=== PATIENT | male | born 1990 | race Hispanic/Latino ===

== ENCOUNTER 2017-12-02 06:17 | Observation (INO) | payer SELFPAY ==
[2017-12-02] MEDS ORDERED: NA CHLORIDE 0.9% 1,000 ML ONE (06:53)
[2017-12-02] MEDS ORDERED: MORPHINE 4 MG/ML SYR ONE ×2 (06:53→09:51)
[2017-12-02] MEDS ORDERED: ONDANSETRON 4 MG/2 ML VIAL ONE (06:53)
[2017-12-02 06:58] LABS: Absolute Lymphocytes (CBC) 2.2 K/uL (0.7-4.9); Absolute Monocytes 0.4 K/uL (0.1-1.3); Basophils % 0.2 % (0-1.3); Eosinophils % 0.3 % (0-4.4); Hematocrit 45.5 % (39.6-49.0); Lymphocytes % 14.1 % (15.3-44.8); MCH 30.4 pg (27.0-35.0); MPV 9.4 fL (7.6-11.3); Monocytes % 2.8 % (3.3-12.3); RBC Red Blood Cell Count 5.23 M/uL (4.33-5.43)
[2017-12-02 07:20] LABS: ALT/SGPT 37 U/L (12-78); AST/SGOT 18 U/L (15-37); Albumin 4.2 g/dL (3.4-5.0); Alkaline Phosphatase 100 U/L (45-117); BUN Blood Urea Nitrogen 9 mg/dL (7-18); Bicarbonate 29 mmol/L (21-32); Bilirubin Direct 0.1 mg/dL (0-0.2); Bilirubin Total 0.6 mg/dL (0.2-1.0); Glucose Level 136 mg/dL (74-106); Lipase 81 U/L (73-393); Potassium 3.6 mmol/L (3.5-5.1); Protein, Total 8.3 g/dL (6.4-8.2); Sodium Level 144 mmol/L (136-145)
--- NOTE | 2017-12-02 08:15 | RAD REPORT ---
EXAM DESCRIPTION: CTAbdomen Pelvis W Contrast - 12/02/2017 7:59 am CLINICAL HISTORY: Abdominal pain. EPIGASTRIC PAIN COMPARISON: No comparisons TECHNIQUE: Biphasic CT imaging of the abdomen and pelvis was performed with 100 ml non-ionic IV cont rast. All CT scans are performed using dose optimization technique as appropriate and may include automated exposure control or mA/KV adjustment according to patient size. FINDINGS: The lung bases are clear. The liver, spleen, pancreas, adrenal glands and kidneys are within normal limits. No bowel obstruction, free air, free fluid or abscess. The appendix is dilated to 13 mm and contains an appendicolith, compatible with acute appendicitis. No evidence of significant lymphadenopathy. No suspicious bony findings. IMPRESSION: Acute appendicitis.
[2017-12-02] MEDS ORDERED: PROMETHAZINE 25 MG/ML VIAL ONE (08:19)
--- NOTE | 2017-12-02 08:56 | RAD REPORT ---
EXAM DESCRIPTION: US - Abdomen Exam Limited - 12/02/2017 7:13 am CLINICAL HISTORY: EPIGASTRIC PAIN COMPARISON: No comparisons FINDINGS: The gallbladder demonstrates no gallstones. No pericholecystic fluid or gallbladder wall t hickening. The common bile duct is normal measuring 1-2 mm.. The liver demonstrates no findings of intrahepatic biliary dilatation. IMPRESSION: Unremarkable examination.
--- NOTE | 2017-12-02 09:11 | EDPHYS ---
Physician Documentation [facility] Name: Dong Mcgee Age: 26 yrs Sex: Male : 1990 Arrival Date: 12/02/2017 Time: 06:18 Bed 7 Private MD: ED Physician Deo Cat HPI: 12/02 07:00 This 26 yrs old Male presents to ER via Ambulatory with complaints of pm1 Nausea/Vomiting, Abdominal Pain. 07:00 The patient presents to the emergency department with nausea, vomiting, abdominal pain. pm1 Onset: The symptoms/episode began/occurred last night. Possible causes: bad food exposure, [place] hot dogs. The symptoms are aggravated by nothing. The symptoms are alleviated by nothing. Associated signs and symptoms: Pertinent positives: abdominal pain, nausea, vomiting, Pertinent negatives: diarrhea, dysuria, fever. Severity of symptoms: in the emergency department the symptoms are worse. The patient has not experienced similar symptoms in the past. The patient has not recently seen a physician, and does not have an established primary care provider. Patient with abdominal pain and vomiting about 1 hour after eating hot dog's with chili. Patient has been vomiting with an inability to sleep. Pain is worse with lying down and walking. Historical: - Allergies: 06:31 No Known Allergies; bb - Home Meds: 06:31 None [Active]; bb - PMHx: 06:31 None; bb - PSHx: 06:31 None; bb - Immunization history:: Adult Immunizations up to date. - Social history:: Smoking status: Patient uses tobacco products, smokes one-half pack cigarettes per day, Patient uses alcohol, occasionally. Patient/guardian denies using street drugs. - Ebola Screening: : No symptoms or risks identified at this time. ROS: 07:00 Constitutional: Negative for fever, chills, and weight loss, Eyes: Negative for injury, pm1 pain, redness, and discharge, ENT: Negative for injury, pain, and discharge, Neck: Negative for injury, pain, and swelling, Cardiovascular: Negative for chest pain, palpitations, and edema, Respiratory: Negative for shortness of breath, cough, wheezing, and pleuritic chest pain. 07:00 Back: Negative for injury and pain, : Negative for injury, bleeding, discharge, and swelling, MS/Extremity: Negative for injury and deformity, Skin: Negative for injury, rash, and discoloration, Neuro: Negative for headache, weakness, numbness, tingling, and seizure. 07:00 Abdomen/GI: Positive for abdominal pain, nausea and vomiting, of the epigastric area, Negative for diarrhea. Exam: 07:00 Constitutional: This is a well developed, well nourished patient who is awake, alert, pm1 and in no acute distress. Head/Face: Normocephalic, atraumatic. Eyes: Pupils equal round and reactive to light, extra-ocular motions intact. Lids and lashes normal. Conjunctiva and sclera are non-icteric and not injected. Cornea within normal limits. Periorbital areas with no swelling, redness, or edema. ENT: Nares patent. No nasal discharge, no septal abnormalities noted. Tympanic membranes are normal and external auditory canals are clear. Oropharynx with no redness, swelling, or masses, exudates, or evidence of obstruction, uvula midline. Mucous membranes moist. Neck: Trachea midline, no thyromegaly or masses palpated, and no cervical lymphadenopathy. Supple, full range of motion without nuchal rigidity, or vertebral point tenderness. No Meningismus. Chest/axilla: Normal chest wall appearance and motion. Nontender with no deformity. No lesions are appreciated. Cardiovascular: Regular rate and rhythm with a normal S1 and S2. No gallops, murmurs, or rubs. Normal PMI, no JVD. No pulse deficits. Respiratory: Lungs have equal breath sounds bilaterally, clear to auscultation and percussion. No rales, rhonchi or wheezes noted. No increased work of breathing, no retractions or nasal flaring. 07:00 Back: No spinal tenderness. No costovertebral tenderness. Full range of motion. Skin: Warm, dry with normal turgor. Normal color with no rashes, no lesions, and no evidence of cellulitis. MS/ Extremity: Pulses equal, no cyanosis. Neurovascular intact. Full, normal range of motion. 07:00 Abdomen/GI: Inspection: abdomen appears normal, Bowel sounds: normal, Palpation: soft, in all quadrants, mild abdominal tenderness, in the right lower quadrant, moderate abdominal tenderness, in the epigastric area, mass, is not appreciated, rebound tenderness, is not appreciated. 07:00 Neuro: Orientation: is normal, Motor: is normal, moves all fours. Vital Signs: 06:31 BP 146 / 93; Pulse 86; Resp 18 S; Temp 98.1(O); Pulse Ox 100% on R/A; Weight 104.33 kg bb (R); Height 5 ft. 7 in. (170.18 cm) (R); Pain 10/10; 06:53 BP 136 / 84; Pulse 51; Resp 16; Pulse Ox 97% on R/A; tl1 08:07 BP 140 / 86; Pulse 49; Resp 18 S; Pulse Ox 99% on R/A; sg 11:00 BP 132 / 72; Pulse 51; Resp 16; Temp 98.1; Pulse Ox 99% on R/A; Pain 0/10; sg 06:31 Body Mass Index 36.02 (104.33 kg, 170.18 cm) bb MDM: 06:40 Patient medically screened. pm1 09:08 Data reviewed: vital signs. Data interpreted: Pulse oximetry: on room air is 99 %. pm1 Interpretation: normal. Counseling: I had a detailed discussion with the patient and/or guardian regarding: the historical points, exam findings, and any diagnostic results supporting the discharge/admit diagnosis, lab results, radiology results, the need for further work-up and treatment in the hospital. 09:26 Physician consultation: Mickey Delgado MD was called at 09:10, was contacted at 09:25, pm1 regarding consult, patient's condition, and will see patient later today, would like admission per Dr. Shaquille Keys DO Admit to hospitalist, IV antibiotics, IV fluids, NPO and will see later today. 09:46 Physician consultation: Shaquille Keys DO was contacted at 09:46, regarding admission, pm1 patient's condition, in the emergency department to see patient at 09:46. 12/02 06:44 Order name: Creatinine for Radiology; Complete Time: 07:20 pm1 12/02 06:44 Order name: Basic Metabolic Panel; Complete Time: 07:20 pm1 12/02 06:44 Order name: CBC with Diff; Complete Time: 07:15 pm1 12/02 06:44 Order name: Hepatic Function; Complete Time: 07:20 pm1 12/02 06:44 Order name: Lipase; Complete Time: 07:20 pm1 12/02 10:00 Order name: Basic Metabolic Panel EDMS 12/02 10:00 Order name: Basic Metabolic Panel EDMS 12/02 10:00 Order name: Basic Metabolic Panel EDMS 12/02 10:00 Order name: Basic Metabolic Panel EDMS 12/02 10:00 Order name: CBC with Automated Diff EDMS 08 10:00 Order name: CBC with Automated Diff EDMS 12/02 10:00 Order name: CBC with Automated Diff EDMS 12/02 10:00 Order name: CBC with Automated Diff EDMS 12/02 10:00 Order name: Magnesium EDMS 12/02 06:44 Order name: IV Saline Lock; Complete Time: 06:45 pm1 08 06:51 Order name: US Abdomen Limited; Complete Time: 09:04 pm1 08 07:29 Order name: CT Abd/Pelvis - W/Contrast: IV contrast only; Complete Time: 09:04 pm1 08 10:00 Order name: CONS Physician Consult EDMS 12/02 10:00 Order name: NPO EDMS 12/02 10:00 Order name: Magnesium EDMS 12/02 10:00 Order name: Magnesium EDMS 12/02 10:00 Order name: Magnesium EDMS 12/02 06:44 Order name: Labs collected and sent; Complete Time: 06:45 pm1 12/02 09:40 Order name: NPO; Complete Time: 09:52 pm1 Administered Medications: 06:50 Drug: NS 0.9% 1000 ml Route: IV; Rate: 1000 ml; Site: right antecubital; tl1 09:53 Follow up: Response: No adverse reaction; IV Status: Completed infusion; IV Intake: sg 1000ml 06:50 Drug: Zofran 4 mg Route: IVP; Infused Over: 2 mins; Site: right antecubital; tl1 07:35 Follow up: Response: No adverse reaction; Nausea is decreased sg 06:50 Drug: morphine 4 mg Route: IVP; Infused Over: 2 mins; Site: right antecubital; tl1 07:30 Follow up: Response: No adverse reaction; Pain is decreased sg 08:15 Drug: Phenergan 12.5 mg Route: IVP; Site: right antecubital; sg 08:40 Follow up: Response: No adverse reaction; Nausea is decreased; Vomiting decreased sg 08:48 Drug: morphine 4 mg Route: IVP; Site: right antecubital; sg 09:40 Follow up: Response: No adverse reaction; Pain is decreased sg 09:25 Drug: Flagyl 500 mg Volume: 100 ml; Route: IVPB; Rate: 200 ml/hr; Infused Over: 30 sg mins; Site: right antecubital; 10:15 Follow up: Response: No adverse reaction; IV Status: Completed infusion sg 09:31 Drug: Cipro 400 mg Volume: 200 ml; Route: IVPB; Infused Over: 60 mins; Site: right sg antecubital; 10:07 Drug: NS 0.9% 1000 ml Route: IV; Rate: 100 ml/hr; Site: right antecubital; sg Disposition: 12/02/17 09:11 Hospitalization ordered by Shaquille Keys for Observation. Preliminary diagnosis is Acute appendicitis. - Bed requested for Telemetry/MedSurg (observation). - Status is Observation. sg - Condition is Stable. - Problem is new. - Symptoms have improved. UTI on Admission? No Addendum: 12/05/2017 19:05 Co-signature as Attending Physician, Deo Cat MD. jamilah hassan Signatures: Dispatcher [employer] [facility] Inez Escudero RN RN Brayden Holland RN Deo Murillo MD MD pkl Ballard, Brenda RN RN bb Kamila Restrepo RN RN tl1 Azeem Aquino, MICAH ZIPPER JOINER pm1 Oralia Rodriguez Corrections: (The following items were deleted from the chart) 12/02 09:13 09:11 Hospitalization Ordered by Mickey Delgado MD for Observation. Preliminary diagnosis eb is Acute appendicitis. Bed requested for Telemetry/MedSurg (observation). Status is Observation. Condition is Stable. Problem is new. Symptoms have improved. UTI on Admission? No. pm1 09:47 09:13 12/02/2017 09:11 Hospitalization Ordered by Mickey Delgado MD for Observation. pm1 Preliminary diagnosis is Acute appendicitis. Bed requested for Telemetry/MedSurg (observation). Status is Observation. Condition is Stable. Problem is new. Symptoms have improved. UTI on Admission? No. eb 10:55 09:47 12/02/2017 09:11 Hospitalization Ordered by Shaquille Keys DO for Observation. dw Preliminary diagnosis is Acute appendicitis. Bed requested for Telemetry/MedSurg (observation). Status is Observation. Condition is Stable. Problem is new. Symptoms have improved. UTI on Admission? No. pm1 11:55 10:55 12/02/2017 09:11 Hospitalization Ordered by Shaquille Keys DO for Observation. sg Preliminary diagnosis is Acute appendicitis. Bed requested for Telemetry/MedSurg (observation). Status is Observation. Condition is Stable. Problem is new. Symptoms have improved. UTI on Admission? No. dw
--- NOTE | 2017-12-02 09:11 | ER ---
Nurse's Notes [facility] Name: Dong Mcgee Age: 26 yrs Sex: Male : 1990 Arrival Date: 12/02/2017 Time: 06:18 Bed 7 Private MD: Diagnosis: Acute appendicitis Presentation: 12/02 06:29 Presenting complaint: Patient states: he has been vomiting since 2300 last night bb non-stop he ate some chili dogs and thinks that may be why he is having abdominal pain of 10/10. Transition of care: patient was not received from another setting of care. Onset of symptoms was December 01, 2017 at 23:00. Risk Assessment: Do you want to hurt yourself or someone else? Patient reports no desire to harm self or others. Initial Sepsis Screen: Does the patient meet any 2 criteria? No. Patient's initial sepsis screen is negative. Does the patient have a suspected source of infection? No. Patient's initial sepsis screen is negative. Care prior to arrival: None. 06:29 Method Of Arrival: Ambulatory bb 06:29 Acuity: REINA 3 bb Triage Assessment: 06:36 GI: Reports nausea, vomiting. jd3 Historical: - Allergies: 06:31 No Known Allergies; bb - Home Meds: 06:31 None [Active]; bb - PMHx: 06:31 None; bb - PSHx: 06:31 None; bb - Immunization history:: Adult Immunizations up to date. - Social history:: Smoking status: Patient uses tobacco products, smokes one-half pack cigarettes per day, Patient uses alcohol, occasionally. Patient/guardian denies using street drugs. - Ebola Screening: : No symptoms or risks identified at this time. Screenin:33 Abuse screen: Denies threats or abuse. Nutritional screening: No deficits noted. bb Tuberculosis screening: No symptoms or risk factors identified. Fall Risk None identified. Assessment: 06:30 General: Appears uncomfortable, Behavior is cooperative, appropriate for age. Pain: jd3 Complains of pain in abdomen Pain currently is 10 out of 10 on a pain scale. Quality of pain is described as sharp, tender. Neuro: Level of Consciousness is awake, alert, obeys commands, Oriented to person, place, time, situation, Appropriate for age. Cardiovascular: Capillary refill < 3 seconds Patient's skin is warm and dry. Respiratory: Airway is patent Respiratory effort is even, unlabored, Respiratory pattern is regular, symmetrical. GI: Abdomen is round Bowel sounds present X 4 quads. Abd is soft X 4 quads Abdomen is tender to palpation X 4 quads. Reports nausea, vomiting. : No signs and/or symptoms were reported regarding the genitourinary system. EENT: No signs and/or symptoms were reported regarding the EENT system. Derm: Skin is intact, Skin is dry, Skin is normal, Skin temperature is warm. Musculoskeletal: Circulation, motion, and sensation intact. Range of motion: intact in all extremities. 07:04 Reassessment: Patient appears in no apparent distress at this time. Patient and/or sg family updated on plan of care and expected duration. Pain level reassessed. Patient is alert, oriented x 3, equal unlabored respirations, skin warm/dry/pink. ultrasound at bedside awaiting a urine specimen at this time, pt has a urinal at bedside. 08:06 Reassessment: Patient appears in no apparent distress at this time. pt returned from sg CT, pt reports nausea and "dry heaving.", Azeem CRAIG notified of pt complaints, awaiting new orders at this time. 09:30 Reassessment: Patient appears in no apparent distress at this time. Patient and/or sg family updated on plan of care and expected duration. Pain level reassessed. Patient is alert, oriented x 3, equal unlabored respirations, skin warm/dry/pink. Patient states feeling better. 10:30 Reassessment: Patient appears in no apparent distress at this time. Patient and/or sg family updated on plan of care and expected duration. Pain level reassessed. Patient is alert, oriented x 3, equal unlabored respirations, skin warm/dry/pink. pt resting quietly, eyes closed, resp even and unlabored, pt family/friend remains at bedside at this time, srx2 pt remains on monitors, IV fluids infusing at ordered rate, awaiting OR crew, awaiting admission bed assignment, pt family/friend stated understanding. Vital Signs: 06:31 BP 146 / 93; Pulse 86; Resp 18 S; Temp 98.1(O); Pulse Ox 100% on R/A; Weight 104.33 kg bb (R); Height 5 ft. 7 in. (170.18 cm) (R); Pain 10/; 06:53 BP 136 / 84; Pulse 51; Resp 16; Pulse Ox 97% on R/A; tl1 08:07 BP 140 / 86; Pulse 49; Resp 18 S; Pulse Ox 99% on R/A; sg 11:00 BP 132 / 72; Pulse 51; Resp 16; Temp 98.1; Pulse Ox 99% on R/A; Pain 0/10; sg 06:31 Body Mass Index 36.02 (104.33 kg, 170.18 cm) bb ED Course: 06:18 Patient arrived in ED. am2 06:30 Inserted saline lock: 20 gauge in right antecubital area, using aseptic technique. jd3 Blood collected. 06:31 Triage completed. bb 06:31 Arm band placed on Patient placed in an exam room, on a stretcher, on pulse oximetry. bb 06:32 Bunny Reich, RN is Primary Nurse. jd3 06:33 Patient has correct armband on for positive identification. Bed in low position. Call bb light in reach. Side rails up X 1. Adult w/ patient. Pulse ox on. NIBP on. 06:36 Azeem Aquino, MICAH is PHCP. pm1 06:36 Deo Cat MD is Attending Physician. pm1 07:04 Primary Nurse role handed off by Bunny Reich RN sg 07:04 Brayden Warren, CAROLANN is Primary Nurse. sg 07:09 Ultrasound completed. hr 07:13 US Abdomen Limited In Process Unspecified. EDMS 07:35 Awaiting radiology results. sg 07:59 CT Abd/Pelvis - W/Contrast: IV contrast only In Process Unspecified. EDMS 09:11 Mickey Delgado MD is Hospitalizing Provider. pm1 09:47 Hospitalizing Provider role handed off by Mickey Delgado MD pm1 09:47 Shaquille Keys DO is Hospitalizing Provider. pm1 11:30 No provider procedures requiring assistance completed. Patient admitted, IV remains in sg place. intact, bleeding controlled, No redness/swelling at site. Pressure dressing applied. Administered Medications: 06:50 Drug: NS 0.9% 1000 ml Route: IV; Rate: 1000 ml; Site: right antecubital; tl1 09:53 Follow up: Response: No adverse reaction; IV Status: Completed infusion; IV Intake: sg 1000ml 06:50 Drug: Zofran 4 mg Route: IVP; Infused Over: 2 mins; Site: right antecubital; tl1 07:35 Follow up: Response: No adverse reaction; Nausea is decreased sg 06:50 Drug: morphine 4 mg Route: IVP; Infused Over: 2 mins; Site: right antecubital; tl1 07:30 Follow up: Response: No adverse reaction; Pain is decreased sg 08:15 Drug: Phenergan 12.5 mg Route: IVP; Site: right antecubital; sg 08:40 Follow up: Response: No adverse reaction; Nausea is decreased; Vomiting decreased sg 08:48 Drug: morphine 4 mg Route: IVP; Site: right antecubital; sg 09:40 Follow up: Response: No adverse reaction; Pain is decreased sg 09:25 Drug: Flagyl 500 mg Volume: 100 ml; Route: IVPB; Rate: 200 ml/hr; Infused Over: 30 sg mins; Site: right antecubital; 10:15 Follow up: Response: No adverse reaction; IV Status: Completed infusion sg 09:31 Drug: Cipro 400 mg Volume: 200 ml; Route: IVPB; Infused Over: 60 mins; Site: right sg antecubital; 10:07 Drug: NS 0.9% 1000 ml Route: IV; Rate: 100 ml/hr; Site: right antecubital; sg Intake: 09:53 IV: 1000ml; Total: 1000ml. sg Outcome: 09:11 Decision to Hospitalize by Provider. pm1 11:30 Admitted to Med/surg accompanied by tech, family with patient, via stretcher, room 205, with chart, Report called to Loco VUONG 11:30 Condition: stable 11:30 Instructed on the need for admit, safety practices, Demonstrated understanding of instructions. 11:55 Patient left the ED. sg Signatures: Dispatcher [employer] EDMS Brayden Warren RN RN sg Tatum Parekh Brenda, RN RN bb Kamila Restrepo RN RN tl1 Azeem Aquino, PERSONAL INJURY LAW SPECIALIST PERSONAL INJURY LAW SPECIALIST pm1 Jennifer Castellano am2 Bunny Reich RN RN jd3 Corrections: (The following items were deleted from the chart) 06:36 06:30 GI: Abdomen is round Bowel sounds present X 4 quads. Abd is soft X 4 quads jd3 Abdomen is tender to palpation X 4 quads. jd3 09:53 08:00 Response: No adverse reaction; IV Status: Completed infusion sg sg
[2017-12-02] MEDS ORDERED: CIPROFLOXACIN 400mg IV 400 MG/200 ML BAG IV ONE (09:27)
[2017-12-02] MEDS ORDERED: METRONIDAZOLE 500mg IVPB 500 MG/100 ML BAG IV ONE (09:27)
[2017-12-02] MEDS ORDERED: ACETAMINOPHEN 650MG/RECT SUPP PR PRN (09:54)
[2017-12-02] MEDS ORDERED: ACETAMINOPHEN 500 MG TAB PO PRN (09:54)
[2017-12-02] MEDS ORDERED: ONDANSETRON 4 MG/2 ML VIAL IV PRN ×2 (09:54→14:57)
[2017-12-02] MEDS ORDERED: MORPHINE 4 MG/ML SYR IV PRN (09:54)
[2017-12-02] MEDS ORDERED: IPRATROPIUM BROM 0.5MG/2.5ML NEB PRN (09:54)
[2017-12-02] MEDS ORDERED: MORPHINE 2 MG/ML SYR IV PRN (09:54)
[2017-12-02] MEDS ORDERED: ALBUTEROL 2.5 MG/3 ML NEB SOL NEB PRN (09:54)
[2017-12-02] MEDS ORDERED: SODIUM CHLORIDE 0.9% 10ML INJ IV PRN (09:54)
[2017-12-02] MEDS ORDERED: NA CHLORIDE 0.9% 1,000 ML IV SCH (10:00)
[2017-12-02] MEDS ORDERED: NA CHLORIDE 0.9% 100 ML IV ONE (10:04)
--- NOTE | 2017-12-02 10:07 | P.HP ---
Certification for Inpatient Patient admitted to: Inpatient With expected LOS: >2 Midnights Patient will require the following post-hospital care: None Practitioner: I am a practitioner with admitting privileges, knowledge of patient current condition, hospital course, and medical plan of care. Services: Services provided to patient in accordance with Admission requirements found in Title 42 Section 412.3 of the Code of Federal Regulations Patient History Date of Service: 12/02/17 Primary Care Provider: none Reason for admission: Abdominal pain, nausea and vomiting History of Present Illness: 26-year-old male presented emergency room with abdominal pain, nausea and vomiting. Patient reported abdominal pain late last night around 11:00 p.m.. Pain was mainly localized to the epigastric region and would radiate to the umbilical region. Pain was a 10/10. It was associated with nausea and vomiting. Patient also had some hot and cold flashes. He was not able to the eat. He last ate dinner eating hot dogs and chili. Patient felt warm. Patient came to the ER after continued pain. In the ER patient was evaluated. White count elevated at 15.7. Sodium 144, potassium 3.6. Renal function within normal range. Abdominal to sound was negative. CT scan revealed acute appendicitis with dilation noted to about 13 mm in size. The patient was admitted for further treatment. I was asked to admit the patient. Surgery has been consulted. When I saw the patient the ER, was at bedside. reports a history of tobacco and alcohol use. He does not have any other major medical problems. He has not had any prior surgeries. Home medications list reviewed: Yes - Past Medical/Surgical History Diabetic: No -: Tobacco abuse -: Alcohol use Past Surgical History: Patient denies surgical history Psychosocial/ Personal History: The patient is . He has 3 children. 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 - Family History Family History: Reviewed- Non-Contributory - Social History Smoking Status: Heavy Tobacco smoker (>10 cigarettes/day) Counseled patient to stop smoking for: less than 10 minutes Smoking therapy provided: Yes Patient receptive to therapy: Yes Alcohol use: Yes CD- Drugs: No Caffeine use: Yes Place of Residence: Home Review of Systems General: Chills, As per HPI Eyes: Unremarkable ENT: Unremarkable Respiratory: Unremarkable Cardiovascular: Unremarkable Gastrointestinal: Nausea, Vomiting, Abdominal Pain, As per HPI Genitourinary: Unremarkable Musculoskeletal: As per HPI Integumentary: Unremarkable Neurological: Unremarkable Lymphatics: Unremarkable Physical Examination - Physical Exam General: Alert, In no apparent distress, Oriented x3, Cooperative HEENT: Atraumatic, Normocephalic, PERRLA, Other (Dry mucous membranes), EOMI Neck: Supple, No Thyromegaly Respiratory: Clear to auscultation bilaterally, Normal air movement Cardiovascular: Normal pulses, Regular rate/rhythm Gastrointestinal: Hypoactive (Throughout), Soft and benign, Non-distended, No masses, No rebound, No guarding, Tenderness (Pain to the epigastric region down the midline to the umbilical region.) Musculoskeletal: No erythema, No tenderness, No warmth Integumentary: No tenderness/swelling, No erythema, No warmth, No cyanosis Neurological: Normal speech, Normal strength at 5/5 x4 extr, Normal tone, Normal affect Lymphatics: No axilla or inguinal lymphadenopathy - Studies Laboratory Data (last 24 hrs) 12/02/17 06:30: WBC 15.7 H, Hgb 15.9, Hct 45.5, Plt Count 216 12/02/17 06:30: Sodium 144, Potassium 3.6, BUN 9, Creatinine 0.90, Glucose 136 H , Total Bilirubin 0.6, AST 18, ALT 37, Alkaline Phosphatase 100, Lipase 81 12/02/17 06:30: Creatinine 1.00 Assessment and Plan - Problems (Diagnosis) (1) Appendicitis Current Visit: Yes Status: Acute Plan: Patient with acute appendicitis. ER has discussed case with surgery. Will continue IV fluids, IV antibiotic therapy-Cipro and Flagyl. Will provide medication for pain. Patient currently NPO. Surgery will evaluate patient for anticipated surgical intervention. Qualifiers: Appendicitis type: acute appendicitis Acute appendicitis type: unspecified acute appendicitis type Qualified Code(s): K35.80 - Unspecified acute appendicitis (2) Tobacco abuse Current Visit: Yes Status: Chronic Plan: Will provide nicotine patch. (3) Alcohol use Current Visit: Yes Status: Chronic Plan: Will address lifestyle modification education and cessation at discharge Discharge Plan: Home Plan to discharge in: Greater than 2 days - Advance Directives Does patient have a Living Will: No Does patient have a Durable POA for Healthcare: No - Code Status/Comfort Care Code Status Assessed: Yes Time Spent Managing Pts Care (In Minutes): 55
[2017-12-02] MEDS ORDERED: Ringers Lactate 1,000 ML IV ONE (12:57)
[2017-12-02] MEDS ORDERED: PROPOFOL 200 MG/20 ML VIAL IV ONE (13:49)
[2017-12-02] MEDS ORDERED: MIDAZOLAM HCL 2 MG/2 ML INJ ONE (13:49)
[2017-12-02] MEDS ORDERED: LIDOCAINE 2% MPF 5 ML VIAL ONE (13:50)
[2017-12-02] MEDS ORDERED: FENTANYL CITR 100 MCG/2 ML ONE (13:50)
[2017-12-02] MEDS ORDERED: ROCURONIUM 50 MG/5 ML VIAL IV ONE (13:51)
[2017-12-02] MEDS ORDERED: ONDANSETRON HCL 40 MG/20 ML VIAL ONE (13:51)
[2017-12-02] MEDS ORDERED: NEOSTIGMINE 1 MG/ML -5 ML SYRINGE ONE (14:37)
[2017-12-02] MEDS ORDERED: GLYCOPYRROLATE 0.2 MG/ML SYR ONE (14:37)
--- NOTE | 2017-12-02 14:38 | P.OP ---
Preoperative diagnosis: Acute Appendicitis Postoperative diagnosis: same Primary procedure: Lap Appy Anesthesia: gen Estimated blood loss: min Specimen: Appy Findings: as above Complications: None Transferred to: Recovery Room Condition: Good
[2017-12-02] MEDS ORDERED: BUPIVACAINE 0.5% PF 10 ML VIAL ONE (14:46)
[2017-12-02] MEDS ORDERED: HYDROMORPHONE HCL 1 MG/ML INJ IV PRN (14:57)
--- NOTE | 2017-12-02 15:40 | OP ---
Date of Procedure: 12/02/2017 Surgeon: Mickey Delgado MD Preoperative Diagnosis: Acute appendicitis. Postoperative Diagnosis: Acute appendicitis. Procedure: Laparoscopic appendectomy. Estimated Blood Loss: Minimal. Specimen: Appendix. Findings: As above. Anesthesia: General. Complications: None. Disposition: The patient tolerated the procedure in stable condition and taken to Recovery in good g eneral condition. Procedure In Detail: The patient was brought to the OR and placed in supine position. General anest hesia was begun. The patient was prepped and draped in usual sterile fashion. Marcaine 0.5% was inf iltrated locally. A 15-blade was used to make a 1 cm supraumbilical midline incision. Subcutaneous tissue was divided. Fascia was identified and divided. A #1 Vicryl stay suture was placed. Periton eal cavity was entered with sharp and blunt dissection. A 12 mm trocar was placed into the peritonea l cavity direct vision. Pneumoperitoneum was established. Two 5 mm trocars were placed, 1 in the [place] prapubic region and 1 in the left lower quadrant. Laparoscopy revealed acute distended appendicitis, appeared somewhat ischemic looking, and the base of the appendix on the cecum and mesoappendix were clearly identified. Endo-GEM stapling device was used to divide both structures and then the appendi x was retrieved through the umbilicus via an EndoCatch bag. Right lower quadrant was irrigated. Eff luent was clear. No evidence of bleeding or bowel injury appreciated. Subsequently, all trocars wer e removed under direct vision. Stay sutures were tied to each other to reapproximate the fascial def ect. Subcutaneous wounds were irrigated and bleeding controlled with cautery. A 3-0 chromic was use d to reapproximate subcutaneous tissue and maximo used to close the skin. Sterile dressing was appl ied. The patient was awakened and taken to Recovery in good general condition. /MODL Voice ID: [id number] Report ID: [id number]
[2017-12-02] MEDS: Ringers Lactate 1,000 ML IV SCH (16:01)
[2017-12-02] MEDS: METRONIDAZOLE 500mg IVPB 500 MG/100 ML BAG IV SCH (16:59)
--- NOTE | 2017-12-02 18:59 | PREOPCON ---
Date of Consultation: 12/02/2017 Reason: Acute appendicitis. History Of Present Illness: The patient is a 26-year-old gentleman comes in with 1-day history of ep igastric diffuse abdominal pain, right lower quadrant. Localization associated with nausea, vomiting . No diarrhea, constipation. No blood in his stool. No dysuria, hematuria, no sore throat, runny n ose, cough, headaches, or dizziness. No chest pain. No fever or chills. Review of Systems: Otherwise unremarkable. Past Medical History: Negative. Past Surgical History: Negative. Allergies: NONE. Social History: The patient does smoke and drink alcohol. He was counseled by Dr. Keys. Family History: Noncontributory. Physical Examination: Vital Signs. Stable. He is afebrile. General: He is awake, alert, and oriented x3. Head and neck: Cranial nerves 2 through 12 grossly within normal limits. No neck masses. No JVD. Throat clear. Neck: Supple. Chest: Clear. Heart: S1, S2. Abdomen: Soft. Please note, the patient was exquisitely tender with rebound in the right lower quad rant. There was no rigidity or guarding. There was Rovsing sign present as well. Extremities: Neurovascularly intact. Neuro is nonfocal. CT of the abdomen and pelvis reviewed with the radiologist, shows a dilated appendix, 13 mm, contains appendicolith compatible with acute appendicitis. Laboratory Data: White count is 15.7 with a left shift. Chemistry reviewed, essentially unremarkabl e. Assessment: Acute appendicitis. Plan: Admit n.p.o., IV fluid, IV antibiotic, to the OR for lap appy, possible open. The patient and understand the risks, benefits, and alternatives and agreed to procedure. /MODL Voice ID: [id number] Report ID: [id number]
[2017-12-02] MEDS: HYDROCODONE/APAP 7.5/325 MG TAB PO PRN (20:59)
[2017-12-02] MEDS: CIPROFLOXACIN 400mg IV 400 MG/200 ML BAG IV SCH (20:59)
[2017-12-03] MEDS: Ringers Lactate 1,000 ML IV SCH (00:19)
[2017-12-03 05:22] LABS: Absolute Lymphocytes (CBC) 3.3 K/uL (0.7-4.9); Absolute Monocytes 0.5 K/uL (0.1-1.3); Absolute Neutrophil 6.9 K/uL (1.8-8.0); Basophils % 0.2 % (0-1.3); Eosinophils % 0.7 % (0-4.4); Hematocrit 39.6 % (39.6-49.0); Lymphocytes % 30.7 % (15.3-44.8); MCH 30.7 pg (27.0-35.0); MCV 88.7 fL (80-100); MPV 9.5 fL (7.6-11.3); RBC Red Blood Cell Count 4.46 M/uL (4.33-5.43)
[2017-12-03 05:28] LABS: BUN Blood Urea Nitrogen 5 mg/dL (7-18); Bicarbonate 33 mmol/L (21-32); Glucose Level 103 mg/dL (74-106); Magnesium 2.3 mg/dL (1.8-2.4); Potassium 3.5 mmol/L (3.5-5.1); Sodium Level 140 mmol/L (136-145)
[2017-12-03] MEDS: HYDROCODONE/APAP 7.5/325 MG TAB PO PRN (06:05)
[2017-12-03] MEDS ORDERED: POTASSIUM 25 MEQ EFFERV TAB PO ONE (06:31)
[2017-12-03] MEDS: CIPROFLOXACIN 400mg IV 400 MG/200 ML BAG IV SCH (08:59)
[2017-12-03] MEDS: METRONIDAZOLE 500mg IVPB 500 MG/100 ML BAG IV SCH ×2 (08:59)
[2017-12-03] MEDS ORDERED: NICOTINE 21 MG/PAT TD SCH (09:00)
[2017-12-03] MEDS ORDERED: PANTOPRAZOLE 40 MG INJ IVP SCH (09:00)
--- NOTE | 2017-12-03 09:39 | P.DS ---
Admission Date: 12/02/17 Discharge Date: 12/03/17 Primary Care Provider: none Disposition: ROUTINE DISCHARGE Discharge Condition: GOOD Reason for Admission: Abdominal pain, nausea and vomiting Consultations: Surgery-Dr. Delgado Procedures: Surgery- Date of Procedure: 12/02/2017 Surgeon: Mickey Delgado MD Preoperative Diagnosis: Acute appendicitis. Postoperative Diagnosis: Acute appendicitis. Procedure: Laparoscopic appendectomy Estimated Blood Loss: Minimal. Specimen: Appendix. Findings: As above. Anesthesia: General. Complications: None. - Problems (1) Appendicitis Onset Date: 12/03/17 Current Visit: Yes Status: Acute Qualifiers: Appendicitis type: acute appendicitis Acute appendicitis type: unspecified acute appendicitis type Qualified Code(s): K35.80 - Unspecified acute appendicitis (2) Tobacco abuse Onset Date: 12/03/17 Current Visit: Yes Status: Chronic (3) Alcohol use Onset Date: 12/03/17 Current Visit: Yes Status: Chronic (4) Obesity Current Visit: Yes Status: Chronic Qualifiers: Obesity type: due to excess calories Obesity classification: adult class 2 (BMI 35 - 39.9) Serious obesity comorbidity presence: without serious comorbidity Body mass index: BMI 35.0-35.9 Qualified Code(s): E66.09 - Other obesity due to excess calories; Z68.35 - Body mass index (BMI) 35.0-35.9, adult Brief History of Present Illness: 26-year-old male presented emergency room with abdominal pain, nausea and vomiting. Patient reported abdominal pain late last night around 11:00 p.m.. Pain was mainly localized to the epigastric region and would radiate to the umbilical region. Pain was a 10/10. It was associated with nausea and vomiting. Patient also had some hot and cold flashes. He was not able to the eat. He last ate dinner eating hot dogs and chili. Patient felt warm. Patient came to the ER after continued pain. In the ER patient was evaluated. White count elevated at 15.7. Sodium 144, potassium 3.6. Renal function within normal range. Abdominal to sound was negative. CT scan revealed acute appendicitis with dilation noted to about 13 mm in size. The patient was admitted for further treatment. I was asked to admit the patient. Surgery has been consulted. When I saw the patient the ER, was at bedside. reports a history of tobacco and alcohol use. He does not have any other major medical problems. He has not had any prior surgeries. Hospital Course: During the course of his stay the patient was evaluated for his acute appendicitis. Surgery recommended intervention. Laparoscopic appendectomy done. Patient tolerated procedure well. At discharge the patient will continue with post operative surgery recommendations. No heavy lifting, pushing or pulling for the next 2 weeks. Patient will follow up with surgery in 1 week to follow up hospitalization. Patient has history of tobacco and alcohol use. Cessation education will be provided. Lifestyle modification education will be provided. Vital Signs/Physical Exam: Temp Pulse Resp BP Pulse Ox 97.8 F 84 20 143/73 H 98 12/03/17 08:00 12/03/17 08:00 12/03/17 08:00 12/03/17 08:00 12/03/17 08:00 General: Alert, In no apparent distress, Oriented x3, Cooperative HEENT: Atraumatic Neck: Supple Respiratory: Clear to auscultation bilaterally, Normal air movement Cardiovascular: Normal pulses, Regular rate/rhythm Gastrointestinal: Normal bowel sounds, Soft and benign, Non-distended, No tenderness, No masses, No rebound, No guarding Musculoskeletal: No erythema, No tenderness, No warmth Integumentary: No tenderness/swelling, No erythema, No warmth, No cyanosis Neurological: Normal speech, Normal strength at 5/5 x4 extr, Normal tone, Normal affect Laboratory Data at Discharge: WBC 10.9 K/uL (4.3-10.9) D 12/03/17 04:20 Hgb 13.7 g/dL (13.6-17.9) 12/03/17 04:20 Hct 39.6 % (39.6-49.0) 12/03/17 04:20 Plt Count 173 K/uL (152-406) 12/03/17 04:20 Sodium 140 mmol/L (136-145) 12/03/17 04:20 Potassium 3.5 mmol/L (3.5-5.1) 12/03/17 04:20 BUN 5 mg/dL (7-18) L 12/03/17 04:20 Creatinine 0.90 mg/dL (0.55-1.3) 12/03/17 04:20 Glucose 103 mg/dL (74-106) 12/03/17 04:20 Magnesium 2.3 mg/dL (1.8-2.4) 12/03/17 04:20 Total Bilirubin 0.6 mg/dL (0.2-1.0) 12/02/17 06:30 AST 18 U/L (15-37) 12/02/17 06:30 ALT 37 U/L (12-78) 12/02/17 06:30 Alkaline Phosphatase 100 U/L (45-117) 12/02/17 06:30 Lipase 81 U/L (73-393) 12/02/17 06:30 Home Medications: NK [No Home Meds] 12/02/17 Patient Discharge Instructions: 1. Patient will be provided information on PCPs in the local area to establish care. 2. Patient presented with acute appendicitis. Patient seen and evaluated by surgery. Laparoscopic appendectomy done. At discharge patient will continue with post operative care and recommendation. No heavy lifting, pushing or pulling for the next 2 weeks. Recommendation is for the patient follow up with surgery in 1 week to follow up his care. Surgery will provide medication for pain. 3. Alcohol and tobacco cessation education will be provided. Diet: soft GI then advance to AHA Activity: No lifting more than 10 lbs Time spent managing pt's care (in minutes): 55
--- NOTE | 2017-12-03 14:02 | PN ---
Date of Progress Note: 12/03/2017 Subjective: The patient is awake, alert, tolerating diet, ambulating, pain controlled with p.o. pain medications, and afebrile. Objective: Vital Signs: Stable. Abdomen: Benign. Assessment: Status post laparoscopic appendectomy. White count was normalized. Recommendations: The patient cleared from a surgical point of view for discharge. Discharge instruc tions prescription for Cipro and Flagyl and Tylenol No. 3 given. The patient will follow up with me in 1 week. /MODL Voice ID: [id number] Report ID: [id number]
== END 2017-12-03 12:31 | disposition home or self-care (01) ==
LOC: ER 06:17 → ERHOLD 09:49 → 2ND 11:31
PROVIDERS: ADMIT Family Medicine; ATTEND Family Medicine
PROC: 0DTJ4ZZ Resection of Appendix, Percutaneous Endoscopic Approach (ICD-10-PCS; principal; 2017-12-02 13:00)
DX: K35.80 Unspecified acute appendicitis (principal); F17.210 Nicotine dependence, cigarettes, uncomplicated; E66.09 Other obesity due to excess calories; Z68.36 Body mass index [BMI] 36.0-36.9, adult
CPT/HCPCS: 36415; 74177; 76705; 80048; 80076; 83690; 83735; 85025; 88304; 96361; 96365; 96375; 99285; C9113; G0378; J0744; J1170; J2250; J2405; J2550; J2710; J3010; J7030; Q9967

== ENCOUNTER 2019-08-16 02:26 | Emergency (ER) | payer SELFPAY ==
[2019-08-16] MEDS ORDERED: LORazepam 2 MG/ML VIAL ONE (03:04)
[2019-08-16 03:39] LABS: Absolute Lymphocytes (CBC) 2.4 K/uL (0.7-4.9); Basophils % 0.2 % (0-1.3); Hematocrit 43.6 % (39.6-49.0); MPV 9.1 fL (7.6-11.3); RBC Red Blood Cell Count 4.92 M/uL (4.33-5.43)
[2019-08-16 04:02] LABS: BUN Blood Urea Nitrogen 10 mg/dL (7-18); Bicarbonate 22 mmol/L (21-32); Glucose Level 142 mg/dL (74-106); Potassium 3.5 mmol/L (3.5-5.1); Sodium Level 141 mmol/L (136-145)
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
[2019-08-16] MEDS ORDERED: MORPHINE 4 MG/ML SYR ONE (06:19)
[2019-08-16] MEDS ORDERED: ONDANSETRON 4 MG/2 ML VIAL ONE (06:19)
[2019-08-16] MEDS ORDERED: KETOROLAC 30 MG/ML INJ ONE (06:24)
[2019-08-16] MEDS ORDERED: NA CHLORIDE 0.9% 1,000 ML ONE (06:25)
[2019-08-16 07:28] VITALS: BP 136/97; TEMP 99; O2SAT 95
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
== END 2019-08-16 07:11 | disposition short-term general hospital (02) ==
LOC: ER 02:26
DX: S32.441A Displaced fracture of posterior column [ilioischial] of right acetabulum, initial encounter for closed fracture (principal); S73.004A Unspecified dislocation of right hip, initial encounter; V49.40XA Driver injured in collision with unspecified motor vehicles in traffic accident, initial encounter; F17.210 Nicotine dependence, cigarettes, uncomplicated
CPT/HCPCS: 36415; 70450; 71260; 72125; 74177; 80048; 85025; 86850; 86900; 86901; 96361; 96374; 96375; 99285; J2405; J7030; Q9967

== ENCOUNTER 2023-01-01 01:23 | Emergency (ER) | payer SELFPAY ==
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
[2023-01-01] MEDS ORDERED: ACETAMINOPHEN 500 MG TAB ONE (02:01)
[2023-01-01] MEDS ORDERED: IBUPROFEN 400 MG TAB ONE (02:02)
[2023-01-01] MEDS ORDERED: NA CHLORIDE 0.9% 3,000 ML ONE (02:02)
[2023-01-01] MEDS ORDERED: CEFTRIAXONE 1000 MG/VIAL ONE (02:02)
[2023-01-01] MEDS ORDERED: NA CHLORIDE 0.9% 100 ML ONE (02:02)
[2023-01-01 02:20] LABS: Absolute Lymphocytes (CBC) 1.2 K/uL (0.7-4.9); Hematocrit 41.8 % (39.6-49.0); Lymphocytes % 15.3 % (15.3-44.8); MCV 84.3 fL (80-100); MPV 9.5 fL (7.6-11.3); Platelets 123 thou/uL (152-406); RBC Red Blood Cell Count 4.96 M/uL (4.33-5.43)
[2023-01-01 02:29] LABS: Albumin 3.7 g/dL (3.4-5.0); Bilirubin Total 0.6 mg/dL (0.2-1.0); Magnesium 2.2 mg/dL (1.6-2.4); Potassium 3.3 mEq/L (3.5-5.1)
--- NOTE | 2023-01-01 03:53 | EDPHYS ---
Physician Documentation [facility] Name: Dong Mcgee Age: 32 yrs Sex: Male : 1990 Arrival Date: 01/01/2023 Time: 01:23 Bed 6 Private MD: VINITA Physician Gilberto Rodriguez HPI: 01/01 02:46 This 32 yrs old Male presents to ER via Wheelchair with complaints of Fever. radha 02:46 The patient reports fever, that was measured at 104 degrees Fahrenheit. radha Historical: - Allergies: 01:43 No Known Allergies; lg3 - Home Meds: 01:43 None [Active]; lg3 - PMHx: 01:43 None; lg3 - PSHx: 01:43 right hip; lg3 - Immunization history:: Adult Immunizations up to date, Client reports having NOT received the Covid vaccine. Flu vaccine is not up to date. - Social history:: Smoking status: Reported history of juuling and/or vaping. Patient/guardian denies using alcohol, street drugs. ROS: 02:49 Eyes: Negative for injury, pain, redness, and discharge, ENT: Negative for injury, radha pain, and discharge, Neck: Negative for injury, pain, and swelling, Cardiovascular: Negative for chest pain, palpitations, and edema, Respiratory: Negative for shortness of breath, cough, wheezing, and pleuritic chest pain, Abdomen/GI: Negative for abdominal pain, nausea, vomiting, diarrhea, and constipation, Back: Negative for injury and pain, : Negative for injury, bleeding, discharge, and swelling, MS/Extremity: Negative for injury and deformity, Skin: Negative for injury, rash, and discoloration, Psych: Negative for depression, anxiety, suicide ideation, homicidal ideation, and hallucinations, Allergy/Immunology: Negative for hives, rash, and allergies, Endocrine: Negative for neck swelling, polydipsia, polyuria, polyphagia, and marked weight changes, Hematologic/Lymphatic: Negative for swollen nodes, abnormal bleeding, and unusual bruising. 02:49 Constitutional: Positive for body aches, chills, fatigue, fever, malaise, poor PO intake. 02:49 Neuro: Positive for headache, weakness. Exam: 02:49 Head/Face: Normocephalic, atraumatic. Eyes: Pupils equal round and reactive to light, radha extra-ocular motions intact. Lids and lashes normal. Conjunctiva and sclera are non-icteric and not injected. Cornea within normal limits. Periorbital areas with no swelling, redness, or edema. ENT: Nares patent. No nasal discharge, no septal abnormalities noted. Tympanic membranes are normal and external auditory canals are clear. Oropharynx with no redness, swelling, or masses, exudates, or evidence of obstruction, uvula midline. Mucous membranes moist. Neck: Trachea midline, no thyromegaly or masses palpated, and no cervical lymphadenopathy. Supple, full range of motion without nuchal rigidity, or vertebral point tenderness. No Meningismus. Chest/axilla: Normal chest wall appearance and motion. Nontender with no deformity. No lesions are appreciated. Cardiovascular: Regular rate and rhythm with a normal S1 and S2. No gallops, murmurs, or rubs. Normal PMI, no JVD. No pulse deficits. Respiratory: Lungs have equal breath sounds bilaterally, clear to auscultation and percussion. No rales, rhonchi or wheezes noted. No increased work of breathing, no retractions or nasal flaring. Abdomen/GI: Soft, non-tender, with normal bowel sounds. No distension or tympany. No guarding or rebound. No evidence of tenderness throughout. Back: No spinal tenderness. No costovertebral tenderness. Full range of motion. Male : Normal genitalia with no discharge or lesions. Skin: Warm, dry with normal turgor. Normal color with no rashes, no lesions, and no evidence of cellulitis. MS/ Extremity: Pulses equal, no cyanosis. Neurovascular intact. Full, normal range of motion. Psych: Awake, alert, with orientation to person, place and time. Behavior, mood, and affect are within normal limits. 02:49 Constitutional: The patient appears febrile, obese, unkempt. 02:49 Neck: External neck: is normal, ROM/movement: is normal, no acute changes, pain, is not appreciated, limited range of motion, is not appreciated, Meningeal signs: are not present. 02:49 Cardiovascular: Rate: tachycardic, actual rate is 114 bpm, Rhythm: regular, Pulses: no pulse deficits are appreciated, Heart sounds: normal, Edema: is not appreciated, JVD: is not appreciated. Vital Signs: 01:41 BP 130 / 87; Pulse 114; Resp 13 S; Temp 102.7(O); Pulse Ox 99% on R/A; Weight 108.86 kg lg3 (R); Height 5 ft. 8 in. (R); 02:52 BP 125 / 64; Pulse 84; Resp 19; Temp 100; vc1 01:41 Body Mass Index 36.49 (108.86 kg, 172.72 cm) lg3 NIH Stroke Scale Scores: 02:49 NIHSS Score: 0 radha Kevin Coma Score: 02:49 Eye Response: spontaneous(4). Motor Response: obeys commands(6). Verbal Response: radha oriented(5). Total: 15. MDM: 01:33 Patient medically screened. [facility] 02:51 Differential diagnosis: viral Infection, bacterial infection, URI, bronchitis, radha pneumonia UTI, gastroenteritis, meningitis. Data reviewed: vital signs, nurses notes, lab test result(s), radiologic studies, CT scan, plain films. Consideration of Admission/Observation Escalation of care including admission/observation considered. I considered the following discharge prescriptions or medication management in the emergency department Medications were administered in the Emergency Department. See MAR. Independent interpretation of the following test(s) in the Emergency Department X-Ray: My interpretation is CXR NEGATIVE. Test considered but Not performed: EKG: NO EKG. Care significantly affected by the following chronic conditions: Obesity. Counseling: I had a detailed discussion with the patient and/or guardian regarding the historical points, exam findings, and any diagnostic results supporting the discharge/admit diagnosis, lab results, radiology results, the need for outpatient follow up, for definitive care, a family practitioner. 01/01 01:37 Order name: CBC with Diff; Complete Time: 02:45 radha 01/01 01:37 Order name: Comprehensive Metabolic Panel; Complete Time: 02:45 radha 01/01 01:37 Order name: Blood Culture Adult (2) radha 01/01 01:37 Order name: Flu; Complete Time: 02:45 radha 01/01 01:37 Order name: Lactate w/ 2H reflex if indic.; Complete Time: 02:45 radha 01/01 02:02 Order name: SARS-COV-2 RT PCR; Complete Time: 03:50 vc1 01/01 02:11 Order name: Magnesium; Complete Time: 02:45 EDMS 01/01 02:11 Order name: Lipase; Complete Time: 02:45 EDMA 01/01 03:19 Order name: CREATININE WHOLE BLOOD; Complete Time: 03:50 EDMA 01/01 01:37 Order name: Chest Pa And Lat (2 Views) XRAY [facility] 01/01 01:41 Order name: CT Head Brain wo Cont [facility] 01/01 01:41 Order name: CT Chest, Abdomen, Pelvis - W/Contrast [facility] 01/01 02:46 Order name: PO challenge: JUICE; Complete Time: 03:28 radha Administered Medications: 02:15 Drug: Acetaminophen PO 1000 mg Route: PO; vc1 02:15 Drug: Ibuprofen PO 800 mg Route: PO; vc1 02:46 Drug: NS 0.9% IV 1000 ml Route: IV; Rate: 1 bolus; Site: right antecubital; vc1 02:46 Drug: Rocephin IV 2 grams Route: IV; Rate: per protocol; Site: right antecubital; vc1 02:47 Drug: NS 0.9% IV 1000 ml Route: IV; Rate: 1 bolus; Site: left antecubital; vc1 02:55 Not Given (Duplicate Order): NS 0.9% IV 1000 ml IV at 125 ml/hr continuous radha 03:26 Drug: NS 0.9% IV 1000 ml Route: IV; Rate: 1 bolus; Site: right antecubital; kl 04:18 Drug: Famotidine PO 40 mg Route: PO; vc1 04:18 Drug: AZITHromycin PO 500 mg Route: PO; vc1 04:18 Drug: Aspirin PO Chewable Tablet 162 mg Route: PO; vc1 Disposition Summary: 01/01/23 03:53 Discharge Ordered Location: Home [facility] Problem: new radha Symptoms: have improved radha Condition: Fair radha Diagnosis - Fever, unspecified radha - Other malaise and fatigue radha - Acute upper respiratory infection, unspecified radha - SARS-associated coronavirus as the cause of diseases classified elsewhere radha Followup: radha - With: Private Physician - When: - Reason: Recheck today's complaints, Continuance of care, Re-evaluation by your physician Discharge Instructions: - Discharge Summary Sheet radha - Fever, Adult radha - Upper Respiratory Infection, Adult radha - Cool Mist Vaporizer radha - Upper Respiratory Infection, Adult, [id number] radha - Aspirin and Your Heart radha - Fever, Adult, [id number] radha - COVID-19 radha - COVID-19: What to Do If You Are Sick - [facility] (07/18/2021) [facility] Forms: - Medication Reconciliation Form [facility] - Thank You Letter [facility] - Antibiotic Education radha - Prescription Opioid Use radha - Patient Portal Instructions [facility] - Leadership Thank You Letter [facility] Prescriptions: - Paxlovid 300 mg (150 mg x 2)-100 mg Oral Tablet, Dose Pack - take 1 dose pack by ORAL route as directed on dose pack take TWO 150 mg tablets [facility] of nirmatrelvir with ONE 100 mg tablet of ritonavir twice daily for 5 days; 30 tablet; Refills: 0, Product Selection Permitted - budesonide-formoterol 160-4.5 mcg/actuation Inhalation HFA Aerosol Inhaler - inhale 2 puff by INHALATION route every 12 hours; 1 unit; Refills: 0, Product radha Selection Permitted - Pepcid 20 mg Oral Tablet - take 1 tablet by ORAL route every 12 hours for 21 days; 42 tablet; Refills: 0, [facility] Product Selection Permitted - Tessalon Perles 100 mg Oral Capsule - take 2 capsule by ORAL route every 8 hours As needed; 40 capsule; Refills: 0, [facility] Product Selection Permitted - Zithromax 500 mg Oral Tablet - take 1 tablet by ORAL route once daily for 5 days; 5 tablet; Refills: 0, [facility] Product Selection Permitted NIH Stroke Scale - NIH Stroke Score Date: 01/01/2023 Time: 02:49 Total Score = 0 10. Dysarthria (speech clarity - read or repeat words) - 0(Normal) 11. Extinction and Inattention (visual/tactile/auditory/spatial/personal) - 0(No abnormality) 1a. Level of Consciousness (LOC) - 0(Alert) 1b. Level of Consciousness (LOC) (Month \T\ Age) - 0(Both) 1c. LOC Commands (Open \T\ Closes Eyes/Retail Team Leader) - 0(Both) 2. Best Gaze (Lateral Gaze Paresis) - 0(Normal) 3. Visual Field Loss - 0(No visual loss) 4. Facial Palsy - 0(Normal) 5a. Left Arm: Motor (10-second hold) - 0(No drift) 5b. Right Arm: Motor (10-second hold) - 0(No drift) 6a. Left Leg: Motor (5-second hold - always test supine) - 0(No drift) 6b. Right Leg: Motor (5-second hold - always test supine) - 0(No drift) 7. Limb Ataxia (finger/nose \T\ heel/frank - test with eyes open) - 0(Absent) 8. Sensory Loss (pinprick arms/legs/face) - 0(Normal) 9. Best Language: Aphasia (description/naming/reading) - 0(No aphasia) Initials: [facility] Signatures: Dispatcher [employer] EDMS Katty Huggins RN RN kl Anderson, Corey, MD MD cha Gibson, Lacie, RN RN lg3 Trudy Royal RN RN vc1 Corrections: (The following items were deleted from the chart) 02:11 01:42 LIPASE+C.LAB.BRZ ordered. EDMS EDMS 02:11 01:42 MAGNESIUM+C.LAB.BRZ ordered. EDMS EDMS 02:30 01:38 SARS-COV-2 Antigen Rapid+I.LAB.BRZ ordered. EDMS EDMS
--- NOTE | 2023-01-01 03:53 | ER ---
Nurse's Notes [facility] Name: Dong Mcgee Age: 32 yrs Sex: Male : 1990 Arrival Date: 01/01/2023 Time: 01:23 Bed 6 Private MD: Diagnosis: Fever, unspecified;Other malaise and fatigue;Acute upper respiratory infection, unspecified;SARS-associated coronavirus as the cause of diseases classified elsewhere Presentation: 01/01 01:41 Chief complaint: Spouse and/or significant other states: 104 fever X2 days, dizzy, lg3 lethargic, rambling and diaphoretic. 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 Coronavirus screen: At this time, unable to obtain information related to travel outside the [place] Client presents with at least one sign or symptom that may indicate coronavirus-19. Standard/surgical mask placed on the client. Ebola Screen: No symptoms or risks identified at this time. Initial Sepsis Screen: Does the patient meet any 2 criteria? Temp <36.0*C (96.8*F)) or > 38.3*C (100.9*F). Altered Mental Status. HR > 90 bpm. Yes Does the patient have a suspected source of infection? Yes: S/S of meningitis or endocarditis If YES to both, name of provider notified: Gilberto Rodriguez MD. Risk Assessment: Do you want to hurt yourself or someone else? Patient reports no desire to harm self or others. Onset of symptoms was December 30, 2022. 01:41 Method Of Arrival: Wheelchair lg3 01:41 Acuity: REINA 3 lg3 Triage Assessment: 01:43 General: Appears in no apparent distress. Behavior is calm, cooperative. Pain: lg3 Complains of pain in generalized body aches. EENT: No deficits noted. No signs and/or symptoms were reported regarding the EENT system. Neuro: Smith Agitation-Sedation Scale (RASS): -1 Drowsy Level of Consciousness is awake, alert, obeys commands, Oriented to person, place, time, situation. Neuro: Reports dizziness, weakness. Cardiovascular: No deficits noted. Denies chest pain, shortness of breath, Capillary refill < 3 seconds Clubbing of nail beds is absent JVD is absent. Respiratory: No deficits noted. Airway is patent Respiratory effort is even, unlabored, Respiratory pattern is regular, symmetrical. GI: No deficits noted. No signs and/or symptoms were reported involving the gastrointestinal system. Abdomen is round non-distended. : No deficits noted. No signs and/or symptoms were reported regarding the genitourinary system. Derm: Skin is intact, is healthy with good turgor, Skin is diaphoretic, Skin is pale, Skin temperature is cool. Musculoskeletal: Reports generalized weakness. Historical: - Allergies: 01:43 No Known Allergies; lg3 - Home Meds: 01:43 None [Active]; lg3 - PMHx: 01:43 None; lg3 - PSHx: 01:43 right hip; lg3 - Immunization history:: Adult Immunizations up to date, Client reports having NOT received the Covid vaccine. Flu vaccine is not up to date. - Social history:: Smoking status: Reported history of juuling and/or vaping. Patient/guardian denies using alcohol, street drugs. Screenin:06 [facility] ED Fall Risk Assessment (Adult) History of falling in the last 3 months, vc1 including since admission No falls in past 3 months (0 pts) Confusion or Disorientation No (0 pts) Intoxicated or Sedated No (0 pts) Impaired Gait No (0 pts) Mobility Assist Device Used No (0 pt) Altered Elimination No (0 pt) Score/Fall Risk Level 0 - 2 = Low Risk Oriented to surroundings, Maintained a safe environment, Educated pt \T\ family on fall prevention, incl call for assistance when getting out of bed. Abuse screen: Denies threats or abuse. Nutritional screening: No deficits noted. Tuberculosis screening: No symptoms or risk factors identified. Vital Signs: 01:41 BP 130 / 87; Pulse 114; Resp 13 S; Temp 102.7(O); Pulse Ox 99% on R/A; Weight 108.86 kg lg3 (R); Height 5 ft. 8 in. (R); 02:52 BP 125 / 64; Pulse 84; Resp 19; Temp 100; vc1 01:41 Body Mass Index 36.49 (108.86 kg, 172.72 cm) lg3 Kevin Coma Score: 02:49 Eye Response: spontaneous(4). Motor Response: obeys commands(6). Verbal Response: radha oriented(5). Total: 15. NIH Stroke Scale Scores: 02:49 NIHSS Score: 0 radha ED Course: 01:26 Patient arrived in ED. mr 01:31 Amol Latif, RN is Primary Nurse. bp 01:33 Gilberto Rodriguez MD is Attending Physician. radha 01:43 Triage completed. lg3 01:43 Arm band placed on right wrist. lg3 01:55 Chest Pa And Lat (2 Views) XRAY In Process Unspecified. EDMS 01:55 CT Head Brain wo Cont In Process Unspecified. EDMS 01:55 CT Chest, Abdomen, Pelvis - W/Contrast In Process Unspecified. EDMS 01:56 Inserted saline lock: 20 gauge in right antecubital area, using aseptic technique. vc1 Blood collected. 01:56 Initial lab(s) drawn, by me, sent to lab. First set of blood cultures drawn by me, Flu vc1 and/or RSV swab sent to lab. 02:07 Patient has correct armband on for positive identification. Bed in low position. Call vc1 light in reach. Client placed on continuous cardiac and pulse oximetry monitoring. NIBP monitoring applied. 02:13 Inserted saline lock: 20 gauge in left antecubital area, using aseptic technique. Blood vc1 collected. 04:59 No provider procedures requiring assistance completed. IV discontinued, intact, vc1 bleeding controlled, No redness/swelling at site. 05:00 Provided Education on: quarantine for 5 days. vc1 Administered Medications: 02:15 Drug: Acetaminophen PO 1000 mg Route: PO; vc1 02:15 Drug: Ibuprofen PO 800 mg Route: PO; vc1 02:46 Drug: NS 0.9% IV 1000 ml Route: IV; Rate: 1 bolus; Site: right antecubital; vc1 02:46 Drug: Rocephin IV 2 grams Route: IV; Rate: per protocol; Site: right antecubital; vc1 02:47 Drug: NS 0.9% IV 1000 ml Route: IV; Rate: 1 bolus; Site: left antecubital; vc1 02:55 Not Given (Duplicate Order): NS 0.9% IV 1000 ml IV at 125 ml/hr continuous radha 03:26 Drug: NS 0.9% IV 1000 ml Route: IV; Rate: 1 bolus; Site: right antecubital; kl 04:18 Drug: Famotidine PO 40 mg Route: PO; vc1 04:18 Drug: AZITHromycin PO 500 mg Route: PO; vc1 04:18 Drug: Aspirin PO Chewable Tablet 162 mg Route: PO; vc1 Medication: 05:00 VIS not applicable for this client. vc1 Outcome: 03:53 Discharge ordered by . radha 04:59 Discharged to home ambulatory. vc1 04:59 Condition: good 04:59 Discharge instructions given to patient, Instructed on discharge instructions, follow up and referral plans. medication usage, Demonstrated understanding of instructions, follow-up care, medications, Prescriptions given X 5 05:00 Patient left the ED. vc1 NIH Stroke Scale - NIH Stroke Score Date: 01/01/2023 Time: 02:49 Total Score = 0 10. Dysarthria (speech clarity - read or repeat words) - 0(Normal) 11. Extinction and Inattention (visual/tactile/auditory/spatial/personal) - 0(No abnormality) 1a. Level of Consciousness (LOC) - 0(Alert) 1b. Level of Consciousness (LOC) (Month \T\ Age) - 0(Both) 1c. LOC Commands (Open \T\ Closes Eyes/Hand Etcher Helper) - 0(Both) 2. Best Gaze (Lateral Gaze Paresis) - 0(Normal) 3. Visual Field Loss - 0(No visual loss) 4. Facial Palsy - 0(Normal) 5a. Left Arm: Motor (10-second hold) - 0(No drift) 5b. Right Arm: Motor (10-second hold) - 0(No drift) 6a. Left Leg: Motor (5-second hold - always test supine) - 0(No drift) 6b. Right Leg: Motor (5-second hold - always test supine) - 0(No drift) 7. Limb Ataxia (finger/nose \T\ heel/frank - test with eyes open) - 0(Absent) 8. Sensory Loss (pinprick arms/legs/face) - 0(Normal) 9. Best Language: Aphasia (description/naming/reading) - 0(No aphasia) Initials: radha Signatures: Dispatcher [employer] Katty Falk RN RN kl Anderson, Corey, MD MD cha Rivera, Amol Matos, RN Geraldine eKnnedy RN RN lg3 Trudy Royal RN RN vc1
[2023-01-01] MEDS ORDERED: FAMOTIDINE 20 MG TAB ONE (04:25)
[2023-01-01] MEDS ORDERED: AZITHROMYCIN 250 MG TAB ONE (04:25)
[2023-01-01] MEDS ORDERED: ASPIRIN 81 MG CHEWABLE TABLET ONE (04:25)
[2023-01-01 05:27] VITALS: O2SAT 99
[2023-01-01 05:33] VITALS: BP 125/64; TEMP 100
== END 2023-01-01 05:00 | disposition home or self-care (01) ==
LOC: ER 01:23
DX: U07.1 COVID-19 (principal); J06.9 Acute upper respiratory infection, unspecified; R53.81 Other malaise; R53.83 Other fatigue
CPT/HCPCS: 36415; 70450; 71046; 71260; 74177; 80053; 82565; 83605; 83690; 83735; 85025; 87040; 87635; 87804; 96374; 99284; J0696; J7030